=== PATIENT | female | born 1990 | race Two or more races ===

== ENCOUNTER 2016-10-25 15:05 | Observation (INO) | payer SELFPAY ==
[2016-04-29 15:22] VITALS: BP 98/53
[2016-10-25] MEDS ORDERED: BETAMET ACET&NA PHOS 30 MG/5 ML VIAL. IM ONE (16:00)
== END 2016-10-25 16:10 | disposition home or self-care (01) ==
LOC: 3 SO LND 15:05
PROVIDERS: ADMIT Specialist; ATTEND Specialist
DX: O36.0130 Maternal care for anti-D [Rh] antibodies, third trimester, not applicable or unspecified (principal); Z3A.00 Weeks of gestation of pregnancy not specified
CPT/HCPCS: 96372; G0378; G0379; J0702

== ENCOUNTER 2016-10-26 17:13 | Observation (INO) | payer SELFPAY ==
[2016-04-29 15:22] VITALS: BP 98/53
[2016-10-26] MEDS ORDERED: BETAMET ACET&NA PHOS 30 MG/5 ML VIAL. IM ONE (17:30)
== END 2016-10-26 18:05 | disposition home or self-care (01) ==
LOC: 3 SO LND 17:13
PROVIDERS: ADMIT Specialist; ATTEND Specialist
DX: Z34.92 Encounter for supervision of normal pregnancy, unspecified, second trimester (principal); Z3A.15 15 weeks gestation of pregnancy
CPT/HCPCS: 96372; G0378; G0379; J0702

== ENCOUNTER 2016-11-01 07:30 | Inpatient (IN) | payer SELFPAY ==
[~2016-11-01] VITALS: Ht 156.2 cm; Wt 76.7 kg
[2016-11-01 12:30] VITALS: BP 122/76
[2016-11-01] MEDS ORDERED: IV RINGERS,LACTATED 1000ML 1,000 ML IV SCH (12:38)
[2016-11-01] MEDS ORDERED: KETOROLAC TROMETHAMINE 30 MG/ML INJ. IV ONE (12:45)
[2016-11-01] MEDS ORDERED: NALOXONE 0.4 MG/ML VIAL. IV PRN (12:45)
[2016-11-01] MEDS ORDERED: ATROPINE 0.5 MG/5 ML DISP.SYRIN. IV PRN (12:45)
[2016-11-01] MEDS: IV RINGERS,LACTATED 1000ML 1,000 ML IV SCH ×2 (12:45→20:14)
[2016-11-01 13:00] LABS: HEMATOCRIT 36.2 % (36.0-47.0); HEMOGLOBIN 12.2 g/dL (12.0-15.5); RED BLOOD COUNT 3.9 x10^6/uL (3.50-5.40); RED CELL DISTRIBUTION WIDTH 13.5 % (11.5-14.5); WHITE BLOOD COUNT 18.9 x10^3/uL (4.0-11.0)
[2016-11-01] MEDS ORDERED: CITRIC ACID/SODIUM CITRATE 30 ML SOLUTION. PO ONE (13:30)
[2016-11-01] MEDS ORDERED: fentaNYL PF VIAL 100 MCG/2 ML VIAL ONE (13:59)
[2016-11-01] MEDS ORDERED: MORPHINE PF 5 MG/10 ML VIAL. ONE (14:00)
[2016-11-01] MEDS ORDERED: OXYTOCIN 10 UNIT/ML VIAL. ONE ×2 (14:00→15:09)
[2016-11-01] MEDS ORDERED: PHENYLEPHRINE in 0.9% NACL PF 1 MG/10 ML DISP.SYRIN. IV ONE (14:06)
[2016-11-01] MEDS ORDERED: ePHEDrine PF IN SALINE 50 MG/5 ML DISP.SYRIN IV ONE (14:06)
[2016-11-01] MEDS ORDERED: FAMOTIDINE 20 MG/2 ML VIAL ONE (14:28)
[2016-11-01] MEDS ORDERED: DEXAMETHASONE SOD PHOS 20 MG/5 ML VIAL. ONE (14:28)
[2016-11-01] MEDS ORDERED: METOCLOPRAMIDE HCL 10 MG/2 ML VIAL. ONE (14:28)
[2016-11-01] MEDS ORDERED: ONDANSETRON PF 4 MG/2 ML VIAL. ONE (14:28)
[2016-11-01] MEDS ORDERED: diphenhydrAMINE ORAL ELIXIR 12.5 MG/5 ML ML PO PRN (15:30)
[2016-11-01] MEDS ORDERED: ZOLPIDEM 5 MG TABLET. PO PRN (15:30)
[2016-11-01] MEDS ORDERED: MAGNESIUM HYDROXIDE 2,400 MG/30 ML ORAL.SUSP. PO PRN (15:30)
[2016-11-01] MEDS ORDERED: MAG HYDROX/ALUMINUM HYD/SIMETH 30 ML ORAL.SUSP PO PRN (15:30)
[2016-11-01] MEDS ORDERED: 0.9 % SODIUM CHLORIDE 10 ML DISP.SYRIN. IV PRN (15:30)
[2016-11-01] MEDS ORDERED: OXYTOCIN 30 UNIT/500 ML PREMIX 500 ML IV PRN (15:30)
[2016-11-01] MEDS ORDERED: ONDANSETRON PF 4 MG/2 ML VIAL. IV PRN (15:30)
[2016-11-01] MEDS ORDERED: SIMETHICONE 80 MG TAB.CHEW PO PRN (15:30)
[2016-11-01] MEDS ORDERED: OXYCODONE/APAP 5/325 TABLET. PO PRN (15:30)
[2016-11-01] MEDS ORDERED: MMR per PROTOCOL. MC PRN (15:30)
--- NOTE | 2016-11-01 15:47 | PDOC ---
BRIEF OPERATIVE NOTE Date: Nov 01, 2016 Pre-Op Diagnosis 36/4 IUP unknown uterine scar Procedure Performed RLTC/S Surgeon Ender Detention Sergeant None Anesthesia Type: Regional Blood Loss 800cc Specimens Obtained None Findings Female 7#2oz Complications None PAYTON CAMARGO MD Nov 01, 2016 15:47
[2016-11-01 19:00] VITALS: BP 115/74
[2016-11-01] MEDS ORDERED: KETOROLAC TROMETHAMINE 30 MG/ML INJ. IV PRN (19:45)
[2016-11-01 20:15] VITALS: BP 112/72
[2016-11-02 01:00] VITALS: BP 108/64
[2016-11-02] MEDS: IBUPROFEN 800 MG TABLET. PO SCH ×2 (05:43→16:31)
[2016-11-02 05:52] VITALS: BP 108/69
[2016-11-02 06:18] LABS: RPR REFLEX Non Reactive (Non Reactive)
[2016-11-02 06:24] LABS: BASO % 0 % (0-3); EOS % 0 % (0-3); HEMATOCRIT 34.6 % (36.0-47.0); HEMOGLOBIN 11.6 g/dL (12.0-15.5); LYMPH # 2.4 x10^3/uL (1.0-4.8); LYMPH % 11 % (24-48); MEAN CORPUSCULAR HEMOGLOBIN 31 pg (25-35); MEAN CORPUSCULAR HGB CONC 34 g/dL (31-37); MEAN CORPUSCULAR VOLUME 92 fL (79-100); MONO % 8 % (0-9); NEUT % 82 % (31-73); PLATELET COUNT 235 x10^3/uL (140-400); RED BLOOD COUNT 3.78 x10^6/uL (3.50-5.40); RED CELL DISTRIBUTION WIDTH 13.5 % (11.5-14.5); WHITE BLOOD COUNT 22.3 x10^3/uL (4.0-11.0)
[2016-11-02] MEDS ORDERED: FERROUS SULFATE 325 MG TABLET. PO SCH (08:00)
[2016-11-02 09:18] LABS: PLT ESTIMATE ADEQUATE (ADEQUATE)
[2016-11-02 10:13] VITALS: BP 113/69
[2016-11-02] MEDS: DOCUSATE SODIUM 100 MG CAPSULE. PO PRN ×2 (12:50→22:19)
[2016-11-02] MEDS: OXYCODONE/APAP 5/325 TABLET. PO PRN ×3 (12:51→22:20)
--- NOTE | 2016-11-02 17:46 | PDOC ---
Provider Note Provider Note Doing well VSS incision without signs of infection FU in AM CBC - BMP 11/02/16 05:32 PAYTON CAMARGO MD Nov 02, 2016 17:46
[2016-11-02 23:02] VITALS: BP 106/71
[2016-11-03] MEDS: IBUPROFEN 800 MG TABLET. PO SCH ×2 (01:57→18:36)
[2016-11-03 05:30] VITALS: BP 110/73
[2016-11-03] MEDS: DOCUSATE SODIUM 100 MG CAPSULE. PO PRN (09:35)
[2016-11-03] MEDS: OXYCODONE/APAP 5/325 TABLET. PO PRN (09:36)
[2016-11-03 11:20] VITALS: BP 107/74
[2016-11-03] MEDS ORDERED: BISACODYL 10 MG SUPP.RECT. PR PRN (11:30)
[2016-11-03 16:34] VITALS: BP 110/71
[2016-11-03 23:21] VITALS: BP 107/65
[2016-11-04 06:39] VITALS: BP 107/67
[2016-11-04] MEDS: IBUPROFEN 800 MG TABLET. PO SCH ×2 (08:37→17:51)
[2016-11-04] MEDS: DOCUSATE SODIUM 100 MG CAPSULE. PO PRN ×2 (08:37→17:51)
[2016-11-04 15:00] VITALS: BP 105/72
--- NOTE | 2016-11-04 15:20 | PDOC ---
Provider Note Provider Note Late entry 11/03/16 Doing well VSS Incision without signs of infection FU in PAYTON DOBBS MD Nov 04, 2016 15:20
--- NOTE | 2016-11-04 15:22 | PDOC3 ---
OB DISCHARGE SUMMARY DATE OF ADMISSION: 11/01/16 DATE OF DISCHARGE: 11/04/16 REASON FOR ADMISSION: section PROCEDURES: Ultrasound INTRAPARTUM PROCEDURES: : Low Cerv Trans PROCEDURES: None OPERATIONS: None PROBLEM LIST AT DISCHARGE Problems Medical Problems: (1) Status: Acute Surgical Problems: (1) Previous section Status: Acute DISCHARGE DIAGNOSIS: Term Delivered DISCHARGE INFORMATION: Activity, Diet HOSPITAL COURSE Unremarkable CONDITION AT DISCHARGE Stable PAYTON CAMARGO MD Nov 04, 2016 15:22
[2016-11-04] MEDS ORDERED: OXYC-323 PO (15:26)
[2016-11-04] MEDS ORDERED: NAPR500T PO (15:26)
[2016-11-04 18:30] VITALS: BP 102/68
--- NOTE | 2016-11-05 03:46 | OP ---
DATE OF SURGERY: 11/01/2016 PREOPERATIVE DIAGNOSIS: A 36 and 4 week intrauterine , unknown ____. POSTOPERATIVE DIAGNOSIS: A 36 and 4 week intrauterine , unknown ____. PROCEDURE: Repeat low transverse . SURGEON: Dr. Sergo Handley. DEMURRAGE MAN: None. ANESTHESIA: Regional. ESTIMATED BLOOD LOSS: 800 mL SPECIMENS: None. FINDINGS: Female infant, Apgars 8, 9 and 9, weight 7 pounds 2 ounces. Normal uterus, tubes and ovaries. COMPLICATIONS: None. CONDITION: Stable. DESCRIPTION OF PROCEDURE: Risks, benefits, indications, alternatives discussed in detail with the patient. The patient was brought to the OR theatre, placed in the supine position with left lateral uterine displacement. Previous midline incision was taken down in toto with scalpel and Bovie cautery. Subcutaneous tissue was taken down with Bovie cautery. Rectus fascia was nicked in the midline and extended superiorly and inferiorly with Bovie cautery with care not to injure any underlying structures. Parietal peritoneum was entered at the same time. Jj retractor was placed within the pelvic cavity. A bladder flap was created with Metzenbaum scissors. Low transverse hysterotomy incision was then made with a scalpel with care not to injure any underlying structures. The incision was extended laterally and superiorly with gloved hand. Membranes were ruptured. Clear fluid was noted. The gloved hand was placed in the lower uterine segment, used to elevate the head with fundal pressure from the assistant executive housekeeper, the infant was delivered on the anterior abdominal wall. The cried spontaneously, moved all extremities. Cord was doubly clamped, transected the cord between the two clamps. The was handed off to the nursing care in attendance. Cord blood samples were taken. Placenta delivered spontaneously intact, 3-vessel cord. Uterus was wiped free of any adherent membranes. Low transverse hysterotomy incision was reapproximated with 0 Monocryl in a running locking manner, imbricated with 0 Monocryl in a vertical mattress stitch fashion. Bladder flap was reapproximated with 3-0 Vicryl in a running manner. The gutters were inspected and noted be free of any blood or debris. Jj retractor was removed. The rectus fascia was reapproximated with 0 PDS in a running manner. Skin was reapproximated with Insorb abdullahi. Sponge, needle and instrument counts were correct x 2 per nursing staff. The patient went to postop anesthesia recovery in stable condition. SERGO HANDLEY MD DR: REY/césar JOB#: [id number] / [id number]
== END 2016-11-04 19:00 | disposition home or self-care (01) | DRG 766 ==
LOC: 3 SO LND 11:29
PROVIDERS: ADMIT Specialist; ATTEND Specialist
PROC: 10D00Z1 Extraction of Products of Conception, Low, Open Approach (ICD-10-PCS; principal; 2016-11-04)
DX: O34.211 Maternal care for low transverse scar from previous cesarean delivery (principal); Z3A.36 36 weeks gestation of pregnancy; Z37.0 Single live birth
CPT/HCPCS: 36415; 82947; 85007; 85027; 86593; 86850; 86900; 86901; J0690; J1100; J1885; J2270; J2370; J2405; J2590; J2765; J3010; J7120; S0028

== ENCOUNTER 2020-01-04 15:05 | Emergency (ER) | payer SELFPAY ==
[~2020-01-04] VITALS: Ht 160 cm; Wt 61.0 kg
[~2020-01-04 15:05] MED LIST: NAPR-683 PO; OXYC1TAB15 PO
[2020-01-04 15:15] VITALS: BP 119/65
--- NOTE | 2020-01-04 15:45 | RAD ---
Exam performed: OB sonogram first trimester. HISTORY: Vaginal bleeding in . DATE OF SERVICE: 01/04/2020. COMPARISON: None available TECHNIQUE: Transabdominal. FINDINGS: Uterus measures 10.0 x 8.0 x 6.0 cm. There is a single intrauterine gestational sac containing a live pole and yolk sac. The CRL measures 2.1 cm corresponding to 8 weeks and 5 days with a sonographic EDC of 08/10/2020. Heart rate measures 1 71 bpm. Bilateral ovaries are normal. The right ovary measures 2.5 x 1.7 x 2.0 cm the left ovary measures 4.1 x 2.2 x 2.0 cm. No solid or cystic mass lesions identified. IMPRESSION: Single intrauterine gestational sac containing a live pole of maturity 8 weeks and 5 days with a heart rate of 1 71 bpm. Electronically signed by: Maryuri Torrez MD (01/04/2020 3:42 PM) [facility]
[2020-01-04 16:05] LABS: BASO % 0 % (0-3); EOS # 0.3 x10^3/uL (0.0-0.7); EOS % 3 % (0-3); HEMATOCRIT 33.8 % (36.0-47.0); HEMOGLOBIN 11.9 g/dL (12.0-15.5); LYMPH # 2.7 x10^3/uL (1.0-4.8); LYMPH % 21 % (24-48); MEAN CORPUSCULAR HEMOGLOBIN 32 pg (25-35); MEAN CORPUSCULAR HGB CONC 35 g/dL (31-37); MEAN CORPUSCULAR VOLUME 91 fL (79-100); MONO % 7 % (0-9); NEUT # 9.2 x10^3/uL (1.8-7.7); NEUT % 69 % (31-73); PLATELET COUNT 258 x10^3/uL (140-400); RED BLOOD COUNT 3.71 x10^6/uL (3.50-5.40); WHITE BLOOD COUNT 13.3 x10^3/uL (4.0-11.0)
[2020-01-04 16:15] LABS: ANION GAP 10 (6-14); BLOOD UREA NITROGEN 9 mg/dL (7-20); BUN/CREATININE RATIO 15 (6-20); CALCIUM 8.6 mg/dL (8.5-10.1); CARBON DIOXIDE 24 mmol/L (21-32); CHLORIDE 103 mmol/L (98-107); CREATININE 0.6 mg/dL (0.6-1.0); GFR 118.2; GLUCOSE 92 mg/dL (70-99); POTASSIUM 3.6 mmol/L (3.5-5.1); SODIUM 137 mmol/L (136-145)
[2020-01-04 16:23] LABS: ALBUMIN 3.3 g/dL (3.4-5.0); ALK PHOS 51 U/L (46-116); ALT (SGPT) 20 U/L (14-59); AST (SGOT) 19 U/L (15-37); TOTAL BILIRUBIN < 0.1 mg/dL (0.2-1.0); TOTAL PROTEIN 6.6 g/dL (6.4-8.2)
[2020-01-04 16:25] LABS: BILIRUBIN,URINE NEGATIVE (NEG); CLARITY,URINE CLEAR; COLOR,URINE YELLOW; NITRITE,URINE NEGATIVE (NEG); PH,URINE 6.5 (<5.0-8.0); PROTEIN,URINE NEGATIVE (NEG-TRACE); UROBILINOGEN,URINE 0.2 mg/dL (0.2 mg/dL)
[2020-01-04 16:41] LABS: BACTERIA,URINE FEW /HPF (0-FEW); RBC,URINE 0 /HPF (0-2); SQUAMOUS EPITHELIAL CELL,UR OCC /LPF; WBC,URINE 0 /HPF (0-4)
--- NOTE | 2020-01-04 17:48 | PHYS DOC ---
Past Medical History Past Medical History: No Pertinent History, Other Additional Past Medical Histor: gastritis (YOHANNES DIXON APRN) Past Surgical History: No Surgical History, (YOHANNES DIXON APRN) Smoking Status: Never Smoker Alcohol Use: None Drug Use: None (YOHANNES DIXON APRN) General Adult EDM: Chief Complaint: VAGINAL BLEEDING HPI: HPI: Patient is a 29 year old female who presents emergency department with complaints of intermittent light vaginal bleeding for the last week. Patient states that her last menstrual cycle was around November 072019, She is 3, para 2. Patient states she has not had a visit yet, she goes to the [facility]. She is not sure what her due date is. She denies any abdominal pain, nausea, vomiting, dysuria, hematuria, or low back pain. Patient denies any irregular vaginal discharge prior to the onset of the bleeding. She reports suprapubic pain and pain to both of her legs for the last 2 days. She denies any swelling of her extremities, shortness of breath, fever, cough, or weakness. She currently complains of suprapubic pain and bilateral leg pain that she rates a 6 out of 10 on the pain scale, she denies any radiation of the pain. Patient denies any alleviating factors, she reports that the pelvic pain increases with palpation. (YOHANNES DIXON APRN) Review of Systems: Review of Systems: Complete review of systems is negative unless otherwise documented in the HPI (YOHANNES DIXON APRN) Heart Score: Risk Factors: Risk Factors: DM, Current or recent (<one month) smoker, HTN, HLP, family history of CAD, obesity. Risk Scores: Score 0 - 3: 2.5% MACE over next 6 weeks - Discharge Home Score 4 - 6: 20.3% MACE over next 6 weeks - Admit for Clinical Observation Score 7 - 10: 72.7% MACE over next 6 weeks - Early Invasive Strategies (YOHANNES DIXON APRN) Allergies: Allergies: Allergies Coded Allergies Type Severity Reaction Last Updated Verified No Known Drug Allergies 04/29/16 No (YOHANNES DIXON APRN) Physical Exam: PE: Constitutional: Well developed, well nourished, no acute distress, non-toxic appearance. HENT: Normocephalic, atraumatic, bilateral external ears normal, nose normal. Eyes: PERRLA, EOMI, conjunctiva normal, no discharge. Neck: Normal range of motion, no stridor. Cardiovascular: Heart rate regular rhythm Lungs & Thorax: Respirations even and unlabored, no retractions, no respiratory distress Pelvic Exam: Salvage Supervisor present [place] ERT Abdomen: Nontender, soft External Genitalia: Normal Skin Speculum: Normal vaginal mucosa, with small amount of dark blood present, no active bleeding from the cervix, OS appears closed Bimanual: Deferred Skin: Warm, dry, no erythema, no rash. Back: No CVA tenderness Extremities: No cyanosis, ROM intact, no edema. Neurologic: Alert and oriented X 3, no focal deficits noted. Psychologic: Affect normal, judgement normal, mood normal. (YOHANNES DIXON APRN) Current Patient Data: Labs: Laboratory Tests Test 01/04/20 15:19 01/04/20 15:20 01/04/20 15:45 POC Urine HCG, Qualitative Hcg positive (Negative) Urine Collection Type Unknown Urine Color Yellow Urine Clarity Clear Urine pH 6.5 (<5.0-8.0) Urine Specific [place] 1.015 (1.000-1.030) Urine Protein Negative mg/dL (NEG-TRACE) Urine Glucose (UA) Negative mg/dL (NEG) Urine Ketones (Stick) Negative mg/dL (NEG) Urine Blood Moderate (NEG) Urine Nitrite Negative (NEG) Urine Bilirubin Negative (NEG) Urine Urobilinogen Dipstick 0.2 mg/dL (0.2 mg/dL) Urine Leukocyte Esterase Negative (NEG) Urine RBC 0 /HPF (0-2) Urine WBC 0 /HPF (0-4) Urine Squamous Epithelial Cells Occ /LPF Urine Bacteria Few /HPF (0-FEW) White Blood Count 13.3 x10^3/uL (4.0-11.0) H Red Blood Count 3.71 x10^6/uL (3.50-5.40) Hemoglobin 11.9 g/dL (12.0-15.5) L Hematocrit 33.8 % (36.0-47.0) L Mean Corpuscular Volume 91 fL (79-100) Mean Corpuscular Hemoglobin 32 pg (25-35) Mean Corpuscular Hemoglobin Concent 35 g/dL (31-37) Red Cell Distribution Width 13.0 % (11.5-14.5) Platelet Count 258 x10^3/uL (140-400) Neutrophils (%) (Auto) 69 % (31-73) Lymphocytes (%) (Auto) 21 % (24-48) L Monocytes (%) (Auto) 7 % (0-9) Eosinophils (%) (Auto) 3 % (0-3) Basophils (%) (Auto) 0 % (0-3) Neutrophils # (Auto) 9.2 x10^3/uL (1.8-7.7) H Lymphocytes # (Auto) 2.7 x10^3/uL (1.0-4.8) Monocytes # (Auto) 1.0 x10^3/uL (0.0-1.1) Eosinophils # (Auto) 0.3 x10^3/uL (0.0-0.7) Basophils # (Auto) 0.0 x10^3/uL (0.0-0.2) Maternal Serum HCG Beta Subunit 23974 mIU/mL (0-5) H Sodium Level 137 mmol/L (136-145) Potassium Level 3.6 mmol/L (3.5-5.1) Chloride Level 103 mmol/L (98-107) Carbon Dioxide Level 24 mmol/L (21-32) Anion Gap 10 (6-14) Blood Urea Nitrogen 9 mg/dL (7-20) Creatinine 0.6 mg/dL (0.6-1.0) Estimated GFR (Cockcroft-Gault) 118.2 BUN/Creatinine Ratio 15 (6-20) Glucose Level 92 mg/dL (70-99) Calcium Level 8.6 mg/dL (8.5-10.1) Total Bilirubin < 0.1 mg/dL (0.2-1.0) L Aspartate Amino Transferase (AST) 19 U/L (15-37) Alanine Aminotransferase (ALT) 20 U/L (14-59) Alkaline Phosphatase 51 U/L (46-116) Total Protein 6.6 g/dL (6.4-8.2) Albumin 3.3 g/dL (3.4-5.0) L Albumin/Globulin Ratio 1.0 (1.0-1.7) Laboratory Tests 01/04/20 15:45 Laboratory Tests 01/04/20 15:45 Vital Signs: Vital Signs Date Time Temp Pulse Resp B/P (MAP) Pulse Ox O2 Delivery O2 Flow Rate FiO2 01/04/20 15:15 98.7 92 16 119/65 (83) 99 Room Air 98.7 (YOHANNES DIXON APRN) EKG: EKG: [] (YOHANNES DIXON APRN) Radiology/Procedures: Radiology/Procedures: PROCEDURE: OB < 14 WKS Exam performed: OB sonogram first trimester. HISTORY: Vaginal bleeding in . DATE OF SERVICE: 01/04/2020. COMPARISON: None available TECHNIQUE: Transabdominal. FINDINGS: Uterus measures 10.0 x 8.0 x 6.0 cm. There is a single intrauterine gestational sac containing a live pole and yolk sac. The CRL measures 2.1 cm corresponding to 8 weeks and 5 days with a sonographic EDC of 08/10/2020. Heart rate measures 1 71 bpm. Bilateral ovaries are normal. The right ovary measures 2.5 x 1.7 x 2.0 cm the left ovary measures 4.1 x 2.2 x 2.0 cm. No solid or cystic mass lesions identified. IMPRESSION: Single intrauterine gestational sac containing a live pole of maturity 8 weeks and 5 days with a heart rate of 1 71 bpm. [] (YOHANNES DIXON APRN) Course & Med Decision Making: Course & Med Decision Making Pertinent Labs and Imaging studies reviewed. (See chart for details) Patient is a 29-year-old female who presented to the emergency department with concerns of intermittent vaginal bleeding during , bilateral leg cramps and suprapubic/pelvic discomfort. CBC revealed white blood cell count of 13.3, hemoglobin 11.9, hematocrit 35.8; CMP revealed no acute findings; UA was not concerning for urinary tract infection; patient's hCG level was 77,744; patient's blood type is O+. OB ultrasound revealed normal ovaries and a single intrauterine gestational sac containing a live pole of measuring 8 weeks and 5 days with a heart rate of 171 bpm, and EDC of 08/10/20 I advised the patient of these findings and recommended pelvic rest until follow-up with OB next week. Return to the emergency room if symptoms worsen or she develops a fever. Patient verbalized an understanding of home care, medications, follow-up, and return to ED instructions and was in agreement with the plan of care. [] (YOHANNES DIXON APRN) Dragon Disclaimer: Dragon Disclaimer: This electronic medical record was generated, in whole or in part, using a voice recognition dictation system. (YOHANNES DIXON APRN) Departure Departure Impression: Primary Impression: Vaginal bleeding during Additional Impression: Qualified Codes: Z3A.08 - 8 weeks gestation of Condition: STABLE Referrals: NO PCP (PCP) Patient Instructions: Vaginal Bleeding During , First Trimester Additional Instructions: Pelvic rest until cleared by your PNEUMATIC TUBE FITTER, follow-up with your PNEUMATIC TUBE FITTER this week for a repeat evaluation. According to your ultrasound you measured 8 weeks, 5 days today and your due date is August 102020. Return to the ER if symptoms worsen. Justicifation of Admission Dx: Justifications for Admission: Justification of Admission Dx: N/A (YOHANNES DIXON APRN) Attending Signature Attending Signature I have participated in the care of this patient and I have reviewed and agree with all pertinent clinical information above including history, exam, and recommendations. (THOMAS BOLTON DO) YOHANNES DIXON APRN Jan 04, 2020 17:48 THOMAS BOLTON DO Jan 05, 2020 11:57
== END 2020-01-04 18:06 | disposition home or self-care (01) ==
LOC: ER 15:05
DX: O46.91 Antepartum hemorrhage, unspecified, first trimester (principal); R10.2 Pelvic and perineal pain; Z3A.08 8 weeks gestation of pregnancy
CPT/HCPCS: 36415; 76801; 80053; 81001; 81025; 84702; 85025; 99284-25

== ENCOUNTER 2020-07-28 22:58 | Inpatient (IN) | payer MEDICAID ==
[~2020-07-28] VITALS: Ht 162.6 cm; Wt 78.6 kg
--- NOTE | 2020-07-28 23:10 | NUR ---
29 YO HX OF REPEAT SECTION DELIVERIES X2. PRESENTS IN ACTIVE LABOR. COMPLAINS OF ABDOMEN AN BACK PAIN SINCE YESTERDAY. COMPLAINS OF PAIN GETTING MORE INTENSE. BLOODY SHOW NOTED. PT ADMITTED FOR DELIVERY.
[2020-07-28] MEDS ORDERED: IV RINGERS,LACTATED 1000ML 1,000 ML IV PRN (23:15)
[2020-07-28 23:27] LABS: BILIRUBIN,URINE NEGATIVE (NEG); CLARITY,URINE CLEAR; COLOR,URINE YELLOW; NITRITE,URINE NEGATIVE (NEG); PROTEIN,URINE NEGATIVE (NEG-TRACE); UROBILINOGEN,URINE 0.2 mg/dL (0.2 mg/dL)
[2020-07-28 23:33] LABS: BACTERIA,URINE MODERATE /HPF (0-FEW); BARBITURATES NEG (NEG); BENZODIAZEPINES NEG (NEG); CANNABINOIDS NEG (NEG); COCAINE NEG (NEG); METHADONE NEG (NEG); OPIATES NEG (NEG); PHENCYCLIDINE NEG (NEG); RBC,URINE 0 /HPF (0-2)
[2020-07-28 23:34] LABS: AMPHETAMINE/METHAMPHETAMINE NEG (NEG)
[2020-07-28 23:58] LABS: AMNIO PT NEGATIVE
--- NOTE | 2020-07-29 00:26 | PDOC ---
GENERAL General: 29 yrs old lady 38 weeks came with Pain and Labor.Admitted for Delivery. ALLERGIES Allergies: Allergies Coded Allergies Type Severity Reaction Last Updated Verified No Known Drug Allergies 04/29/16 No MEDS Medications: Current Medications Medications (Trade) Dose Ordered Sig/Domitila Route PRN Reason Start Time Stop Time Status Last Admin Dose Admin Ringer's Solution 1,000 ml @ 125 mls/hr Q8H PRN IV hydration 07/28/20 23:15 07/28/20 23:56 LAB Lab: Laboratory Tests Test 07/28/20 23:15 07/28/20 23:28 Urine Collection Type Unknown Urine Color Yellow Urine Clarity Clear Urine pH 6.0 (<5.0-8.0) Urine Specific [place] 1.015 (1.000-1.030) Urine Protein Negative mg/dL (NEG-TRACE) Urine Glucose (UA) 100 mg/dL (NEG) Urine Ketones (Stick) Negative mg/dL (NEG) Urine Blood Negative (NEG) Urine Nitrite Negative (NEG) Urine Bilirubin Negative (NEG) Urine Urobilinogen Dipstick 0.2 mg/dL (0.2 mg/dL) Urine Leukocyte Esterase Small (NEG) Urine RBC 0 /HPF (0-2) Urine WBC 11-20 /HPF (0-4) Urine Squamous Epithelial Cells Mod /LPF Urine Bacteria Moderate /HPF (0-FEW) Urine Mucus Slight /LPF Urine Opiates Screen Neg (NEG) Urine Methadone Screen Neg (NEG) Urine Barbiturates Neg (NEG) Urine Phencyclidine Screen Neg (NEG) Urine Amphetamine/Methamphetamine Neg (NEG) Urine Benzodiazepines Screen Neg (NEG) Urine Cocaine Screen Neg (NEG) Urine Cannabinoids Screen Neg (NEG) Urine Ethyl Alcohol Neg (NEG) Amniotic Fluid Swab Test Negative ASSESSMENT & PLAN A&P Vital signs stable. Abdomen soft. Patient has contractions Q 1 to 2 minutes. Cervix 1cm dilated . FHT 146/min. Patient has had 2 Previous . Patient scheduled for immediate . Justifications for Admission Other Justification CESARIO DOMÍNGUEZ MD Jul 29, 2020 00:26
[2020-07-29] MEDS ORDERED: 0.9 % SODIUM CHLORIDE 10 ML DISP.SYRIN. IV PRN (00:30)
[2020-07-29] MEDS ORDERED: HYDROCORTISONE 1% TOPICAL OINTMENT 30GM TUBE. TP PRN (00:30)
[2020-07-29] MEDS ORDERED: diphenhydrAMINE ORAL ELIXIR 12.5 MG/5 ML ML PO PRN (00:30)
[2020-07-29] MEDS ORDERED: ZOLPIDEM 5 MG TABLET. PO PRN (00:30)
[2020-07-29] MEDS ORDERED: TDaP (Adacel) per PROTOCOL. MC PRN (00:30)
[2020-07-29] MEDS ORDERED: ONDANSETRON PF 4 MG/2 ML VIAL. IV PRN (00:30)
[2020-07-29] MEDS ORDERED: MMR per PROTOCOL. MC PRN (00:30)
[2020-07-29] MEDS ORDERED: OXYTOCIN 30 UNIT/500 ML PREMIX 500 ML IV PRN (00:30)
[2020-07-29] MEDS ORDERED: OXYTOCIN 10 UNIT/ML VIAL. ONE ×4 (00:59→02:25)
[2020-07-29] MEDS ORDERED: ONDANSETRON PF 4 MG/2 ML VIAL. ONE (00:59)
[2020-07-29] MEDS ORDERED: PHENYLEPHRINE in 0.9% NACL PF 1 MG/10 ML SYRINGE. IV ONE (00:59)
[2020-07-29] MEDS ORDERED: MORPHINE PF 10 MG/10 ML AMPUL. ONE (01:00)
[2020-07-29] MEDS ORDERED: IV RINGERS,LACTATED 1000ML 1,000 ML IV SCH ×2 (01:00)
[2020-07-29] MEDS ORDERED: fentaNYL PF VIAL 100 MCG/2 ML VIAL ONE (01:00)
[2020-07-29] MEDS ORDERED: 0.9 % SODIUM CHLORIDE 20 ML VIAL. IJ ONE (01:04)
[2020-07-29 01:09] LABS: HEMATOCRIT 33.7 % (36.0-47.0); HEMOGLOBIN 11.4 g/dL (12.0-15.5); RED BLOOD COUNT 3.8 x10^6/uL (3.50-5.40); RED CELL DISTRIBUTION WIDTH 13.7 % (11.5-14.5); WHITE BLOOD COUNT 15.3 x10^3/uL (4.0-11.0)
[2020-07-29] MEDS ORDERED: CITRIC ACID/SODIUM CITRATE 30 ML SOLUTION. PO ONE (01:30)
--- NOTE | 2020-07-29 03:12 | HP ---
ADMIT DATE: 07/28/2020 HISTORY OF PRESENT ILLNESS: This patient is a 29-year-old Amharic lady from [facility], and she is a 3, para 2. Came into the hospital, Labor and Delivery, with a history of having contractions and she has had previous 2 sections, and she is about 38-39 weeks' at this time. The patient admitted to the hospital as she is in labor. PHYSICAL EXAMINATION: Reveals: VITAL SIGNS: Being stable. ABDOMEN: Soft, term-size uterus, heart tones are 142 per minute, vertex presenting. PELVIC: Shows cervix about 1-2 cm dilated and membranes intact, vertex presenting. No vaginal bleeding noted. EXTREMITIES: No edema, feet. The patient is being seen in the [facility] for care. IMPRESSION: 3, previous section, labor. PLAN: Admission, IV fluids, and repeat at this time. CESARIO DOMÍNGUEZ MD DR: KORY/césar JOB#: [id number] / [id number]
--- NOTE | 2020-07-29 03:30 | OP ---
DATE OF SURGERY: PREOPERATIVE DIAGNOSES: 3, para 2; previous section; labor. POSTOPERATIVE DIAGNOSES: 3, para 2; previous section; labor. OPERATION PERFORMED: Repeat lower segment , lysis of adhesions, and abdominal bilateral tubal ligation. OPERATIVE PROCEDURE: The patient was taken to the operating room. Spinal block was given. The patient was placed in a dorsal supine position. Gunter catheter introduced into bladder for continuous bladder drainage. Lower abdomen was prepped and draped in the usual manner. There was a vertical incision before, so a vertical incision was made over the area of the previous scar. Abdomen opened in layers. Adhesions of the omentum to the abdominal wall were all released; and after this, the bladder flap was dissected. Bladder was pushed way down the lower segment of the uterus. Incision was made on the lower segment of the uterus and was extended on either side using index fingers. Amniotomy done. A live female infant weighing 6 pounds 2 ounces was delivered at 0215 hours with the score of 8, 9 and 9 without any problem. Cord was clamped and cut. Cord blood was taken. Placenta removed complete, and she did receive Pitocin after delivery of the placenta. The uterine incision was sutured with 2-0 chromic catgut sutures in 2 layers without any problem. Reperitonealization was done with continuous 0 chromic catgut sutures; and after this, the tubal ligation was done on either side using David's method. The fallopian tube on the right side was held with a clamp and segment of the fallopian tube was doubly ligated with 0 chromic catgut sutures and the segment of the fallopian tube was excised and subjected for pathological examination, and the pedicle was doubly ligated with 0 chromic catgut sutures. The same was done on the left side fallopian tube and also the fallopian tube was excised and subjected for pathological examination. After this, uterus was placed in the abdominal cavity. All the blood clots in the pelvic cavity were removed. Abdomen closed in layers using continuous 0 chromic catgut sutures for the peritoneum, the muscle and the fascia; 3-0 plain continuous sutures applied for subcutaneous tissue; and 3-0 Vicryl subcutaneous sutures were placed; a pressure dressing was given. The patient was sent to the recovery room in good condition. No complications encountered at the time of the procedure. Estimated blood loss was about 750 mL. Postoperative condition is stable. Baby is referred to hired help for further care and treatment. CESARIO DOMÍNGUEZ MD DR: KORY/césar JOB#: [id number] / [id number]
[2020-07-29] MEDS: KETOROLAC 30 MG/ML VIAL. IVP PRN ×2 (05:35→20:11)
[2020-07-29] MEDS ORDERED: ceFAZolin 2GM PREMIX 2 GM/50 ML BAG IV ONE (06:00)
[2020-07-29] MEDS: IBUPROFEN 200 MG TABLET. PO SCH (06:00)
[2020-07-29 06:30] VITALS: BP 115/77
[2020-07-29 07:55] VITALS: BP 126/78
--- NOTE | 2020-07-29 08:01 | NUR ---
Pt transferred over at around 0600 from L&D, I was in another patients room and did not come out until around 0620. I got her vitals and took her baby to the nursery as the father had left the hospital and patient was not wanting to hold her baby r/t slight discomfort from sx. She did not request any additional pain medication. Day shift will do the admission.
[2020-07-29 13:00] VITALS: BP 108/61
[2020-07-29] MEDS: MAG HYDROX/ALUMINUM HYD/SIMETH 30 ML ORAL.SUSP PO PRN (13:05)
[2020-07-29 17:30] VITALS: BP 104/57
[2020-07-29 20:00] VITALS: BP 115/76
[2020-07-30] VITALS: BP 119/77
[2020-07-30 04:00] VITALS: BP 117/77
[2020-07-30] MEDS: IBUPROFEN 200 MG TABLET. PO SCH ×3 (04:17→20:59)
[2020-07-30] MEDS: oxyCODONE/APAP 5/325 1 TAB TABLET PO PRN ×4 (04:18→21:00)
[2020-07-30 08:15] VITALS: BP 99/66
--- NOTE | 2020-07-30 10:50 | NUR ---
IP: Pt is COVID antigen negative but PCR returned positive. Informed nurse of positive return.
[2020-07-30 10:51] LABS: HEMATOCRIT 29.4 % (36.0-47.0); HEMOGLOBIN 9.7 g/dL (12.0-15.5); RED BLOOD COUNT 3.27 x10^6/uL (3.50-5.40); RED CELL DISTRIBUTION WIDTH 13.6 % (11.5-14.5); WHITE BLOOD COUNT 15.5 x10^3/uL (4.0-11.0)
[2020-07-30 12:15] VITALS: BP 98/58
[2020-07-30] MEDS: FERROUS SULFATE 325 MG TABLET. PO SCH ×2 (12:52→17:51)
[2020-07-30] MEDS: DOCUSATE SODIUM 100 MG CAPSULE. PO PRN ×2 (12:52→17:51)
--- NOTE | 2020-07-30 13:52 | PDOC ---
GENERAL General: Patient has Positive Covid-19 test. No Problems. VITAL SIGNS Vital Signs/I&O: Vital Signs Date Time Temp Pulse Resp B/P (MAP) Pulse Ox O2 Delivery O2 Flow Rate FiO2 07/30/20 12:53 16 99 Room Air 07/30/20 12:15 98.1 77 98/58 (71) 98.1 I & O 07/29/20 07/29/20 07/30/20 15:00 23:00 07:00 Output Total 2500 ml 2400 ml Balance -2500 ml -2400 ml ALLERGIES Allergies: Allergies Coded Allergies Type Severity Reaction Last Updated Verified No Known Drug Allergies 04/29/16 No LAB Lab: Laboratory Tests Test 07/30/20 10:30 White Blood Count 15.5 x10^3/uL (4.0-11.0) H Red Blood Count 3.27 x10^6/uL (3.50-5.40) L Hemoglobin 9.7 g/dL (12.0-15.5) L Hematocrit 29.4 % (36.0-47.0) L Mean Corpuscular Volume 90 fL (79-100) Mean Corpuscular Hemoglobin 30 pg (25-35) Mean Corpuscular Hemoglobin Concent 33 g/dL (31-37) Red Cell Distribution Width 13.6 % (11.5-14.5) Platelet Count 176 x10^3/uL (140-400) Laboratory Tests 07/30/20 10:30 ASSESSMENT & PLAN A&P Vital signs stable. Uterus firm . Lochia Normal. Justifications for Admission Other Justification CESARIO DOMÍNGUEZ MD Jul 30, 2020 13:52
[2020-07-30 16:50] VITALS: BP 98/65
[2020-07-30 20:45] VITALS: BP 112/75
[2020-07-30] MEDS: MAG HYDROX/ALUMINUM HYD/SIMETH 30 ML ORAL.SUSP PO PRN (21:00)
[2020-07-31] MEDS: oxyCODONE/APAP 5/325 1 TAB TABLET PO PRN ×3 (02:01→11:21)
[2020-07-31 06:15] VITALS: BP 111/83
[2020-07-31] MEDS: IBUPROFEN 200 MG TABLET. PO SCH (06:32)
[2020-07-31] MEDS: DOCUSATE SODIUM 100 MG CAPSULE. PO PRN ×2 (06:33→07:59)
[2020-07-31] MEDS: FERROUS SULFATE 325 MG TABLET. PO SCH (07:59)
[2020-07-31 08:30] VITALS: BP 109/79
--- NOTE | 2020-07-31 11:50 | PDOC ---
GENERAL General: Patient doing ok. Anxious to go Home today. VITAL SIGNS Vital Signs/I&O: Vital Signs Date Time Temp Pulse Resp B/P (MAP) Pulse Ox O2 Delivery O2 Flow Rate FiO2 07/31/20 11:21 16 Room Air 07/31/20 08:30 98.1 78 109/79 (89) 97 98.1 ALLERGIES Allergies: Allergies Coded Allergies Type Severity Reaction Last Updated Verified No Known Drug Allergies 04/29/16 No ASSESSMENT & PLAN A&P Vital signs stable. Uterus firm, Lochia Normal. Incision healing. Justifications for Admission Other Justification CESARIO DOMÍNGUEZ MD Jul 31, 2020 11:50
[2020-07-31 12:50] VITALS: BP 126/88
--- NOTE | 2020-07-31 13:50 | NUR ---
dismissed per w/c to home with baby in carseat. Stable
[2020-07-31] MEDS ORDERED: TRAM50TA PO (14:25)
--- NOTE | 2020-08-04 18:10 | PATHOLOGY ---
[facility] Accession Number: [id number] . 01 Material submitted: . PART A: fallopian tube - LEFT FALLOPIAN TUBE. Modifiers: left PART B: fallopian tube - RIGHT FALLOPIAN TUBE. Modifiers: right . 01 Clinical history: . 38 WKS GEST. TERM LABOR . 02 Diagnosis: A. Left tubal ligation: - Segment of fallopian tube confirmed. . B. Right salpingectomy: - Segment of fallopian tube confirmed. (JPM:ncio; 08/04/2020) QMS 08/04/2020 1524 Local . 02 Electronically signed: . Deondre Hebert MD, Pathologist NPI- [id number] . 01 Gross description: . A. The specimen is received in formalin, labeled "Philly Jackson Moreno, left ovarian tube". The site is verified on the problem specimen form as, "left fallopian tube". Received is a non-fimbriated fallopian tube segment measuring 0.8 cm in length by 0.5 cm in diameter. The serosal surface is pink-smith in appearance. Sectioning reveals a patent lumen. The specimen is submitted entirely in cassette A1. . B. The specimen is received in formalin, labeled "Philly Jackson Moreno, right ovarian tube". The site is verified on the problem specimen form as, "right fallopian tube". Received is a non-fimbriated fallopian tube segment measuring 1.3 cm in length by 0.5 cm in diameter. The serosal surface is pink-vargas in appearance. Sectioning reveals a patent lumen. The specimen is submitted entirely in cassette B1. (CAA; 08/03/2020) QAC/QAC 08/04/2020 1523 Local . 02 Pathologist provided ICD-10: Z3A.38 . 02 CPT . 583951, [id number] Specimen Comment: A courtesy copy of this report has been sent to [phone] Specimen Comment: Report sent to Performed at: 01 [facility] [address] [id number] MD Radhames Denis MD Phone: [phone] Performed at: 02 [facility] [address] [place], [place] [id number] MD Deondre Hebert MD Phone: [phone]
--- NOTE | 2020-08-21 23:41 | DS ---
DATE OF DISCHARGE: 07/31/2020 SUBJECTIVE: The patient is a 29-year-old female who is a 3, para 2, previous [address] sections[address] [facility] and she came in labor and hence admitted to the hospital for a repeat at this time. OBJECTIVE: VITAL SIGNS: Stable. HEAD, EYES, EARS, NOSE, THROAT: Within normal limits. LUNGS: Clear. HEART: Sounds regular sinus rhythm. ABDOMEN: Soft. The patient having some contractions. PELVIC: Shows cervical os is about 1-2 cm dilated and the patient in active labor. HOSPITAL COURSE: She did undergo repeat lower segment , lysis of adhesions and also abdominal bilateral tubal ligation as the patient had previously signed the permit for the tubal ligation. Postoperatively, she did well. No complications. She was dismissed to home care on 07/31/2020 with the advice to come back to the office in 2 weeks for postoperative care and treatment. DIAGNOSIS: 3, para 2, previous section, labor. Repeat done along with lysis of adhesions and tubal ligation. PLAN: She will be followed in the office in 2 weeks for further care and treatment. CESARIO DOMÍNGUEZ MD DR: KORY/césar JOB#: [id number] / [id number]
== END 2020-07-31 13:50 | disposition home or self-care (01) | DRG 783 ==
LOC: OBSVTOIN 22:58 → 3 SO LND 22:58 → 3 NORTH 07-29 06:00
PROVIDERS: ADMIT Obstetrics & Gynecology; ATTEND Obstetrics & Gynecology
PROC: 10D00Z1 Extraction of Products of Conception, Low, Open Approach (ICD-10-PCS; principal; 2020-07-29)
PROC: 0UL70ZZ Occlusion of Bilateral Fallopian Tubes, Open Approach (ICD-10-PCS; 2020-07-29)
DX: O34.211 Maternal care for low transverse scar from previous cesarean delivery (principal); U07.1 COVID-19; O98.52 Other viral diseases complicating childbirth; O99.62 Diseases of the digestive system complicating childbirth; Z30.2 Encounter for sterilization; Z3A.39 39 weeks gestation of pregnancy; Z37.0 Single live birth; K66.0 Peritoneal adhesions (postprocedural) (postinfection)
CPT/HCPCS: 36415; 80307; 81001; 84112; 85027; 86592; 86850; 86900; 86901; 87086; 87426; 88302; G0378; J0690; J1885; J2274; J2370; J2405; J2590; J3010; J7120; U0003